=== PATIENT | female | born 1960 | race Hispanic/Latino ===

== ENCOUNTER 2021-09-06 17:37 | Inpatient (IN) | payer OTHER ==
[~2021-09-06] VITALS: Ht 152.4 cm; Wt 159.0 kg
[2021-09-06] MEDS ORDERED: ACETAMINOPHEN 325 MG TAB PO ONE (17:45)
[2021-09-06] MEDS ORDERED: SODIUM CHLORIDE 0.9% 1000ML 1,000 ML IV ONE ×3 (17:45→18:45)
[2021-09-06] MEDS: CEFTRIAXONE 1 GM in SODIUM CHLORIDE 0.9% 50ML 50 ML IV SCH (18:23)
[2021-09-06 18:29] LABS: BASOPHILS # (AUTO) 0.1 (0.0-0.1); BASOPHILS % 0.3 % (0.0-1.0); EOSINOPHILS # (AUTO) 0.1 (0.0-0.4); EOSINOPHILS % 0.3 % (0.0-6.0); HEMATOCRIT 29.8 % (34.2-44.1); HEMOGLOBIN 9.5 g/dL (12.0-16.0); LYMPHOCYTES # (AUTO) 1.2 (1.0-3.2); LYMPHOCYTES % 7.8 % (18.0-39.1); MEAN CORPUSCULAR HEMOGLOBIN 30.4 pg (28-32); MEAN CORPUSCULAR HGB CONC 31.9 g/dL (31-35); MEAN CORPUSCULAR VOLUME 95.5 fL (81-99); MONOCYTES # (AUTO) 1.2 (0.2-0.8); MONOCYTES % 7.3 % (4.4-11.3); NEUTROPHILS # (AUTO) 13.3 (2.1-6.9); NEUTROPHILS % 83.1 % (38.7-80.0); PLATELET COUNT 129 x10e3/uL (140-360); RED BLOOD COUNT 3.12 x10e6/uL (3.6-5.1); RED CELL DISTRIBUTION WIDTH 20.7 % (11.7-14.4)
[2021-09-06 18:37] LABS: CLARITY,URINE SL CLOUDY (CLEAR); COLOR,URINE AMBER (YELLOW); KETONES,URINE TRACE (NEGATIVE); LEUKOCYTE ESTERASE ,URINE SMALL (NEGATIVE); NITRITE,URINE POSITIVE (NEGATIVE); PROTEIN,URINE DIPSTICK 1+ (NEGATIVE); URINE UROBILINOGEN 4 mg/dL (0.2 - 1)
[2021-09-06 18:43] LABS: ALBUMIN 2.2 g/dL (3.5-5.0); ALBUMIN/GLOBULIN RATIO 0.4 (0.8-2.0); ANION GAP 11.6 mmol/L (8-16); CREATININE, SERUM 0.59 mg/dL (0.57-1.11); POTASSIUM 3.6 mmol/L (3.5-5.1)
[2021-09-06] MEDS: SODIUM CHLORIDE 0.9% 1000ML 1,000 ML IV SCH (18:43)
[2021-09-06 18:44] LABS: BACTERIA,URINE MANY /HPF; RBC,URINE 0-5 /HPF (0-5)
[2021-09-06 18:52] LABS: CREATINE KINASE MB 1.4 ng/mL (0-5.0)
[2021-09-06] MEDS ORDERED: ONDANSETRON HCL INJ 2MG/ML 2ML 2 MG/ML VIAL IV PRN (20:00)
[2021-09-06] MEDS ORDERED: ACETAMINOPHEN/CODEINE 300MG - 30MG TAB PO PRN (21:15)
[2021-09-06] MEDS ORDERED: ENOXAPARIN SOD INJ 40 MG/0.4 ML SYR SC STA (21:17)
[2021-09-06 22:00] VITALS: BP 127/75
[2021-09-07] VITALS (12 sets, daily range): BP systolic 112–147; BP diastolic 67–83
[2021-09-07] MEDS: SODIUM CHLORIDE 0.9% 1000ML 1,000 ML IV SCH (04:57)
[2021-09-07 06:07] LABS: BASOPHILS # (AUTO) 0.1 (0.0-0.1); BASOPHILS % 0.5 % (0.0-1.0); EOSINOPHILS # (AUTO) 0.1 (0.0-0.4); EOSINOPHILS % 0.5 % (0.0-6.0); HEMATOCRIT 29.1 % (34.2-44.1); HEMOGLOBIN 9.4 g/dL (12.0-16.0); LYMPHOCYTES # (AUTO) 1.8 (1.0-3.2); LYMPHOCYTES % 11.7 % (18.0-39.1); MEAN CORPUSCULAR HGB CONC 32.3 g/dL (31-35); MONOCYTES # (AUTO) 1.2 (0.2-0.8); MONOCYTES % 7.7 % (4.4-11.3); NEUTROPHILS # (AUTO) 11.8 (2.1-6.9); NEUTROPHILS % 78.8 % (38.7-80.0); PLATELET COUNT 110 x10e3/uL (140-360); RED BLOOD COUNT 3.03 x10e6/uL (3.6-5.1); RED CELL DISTRIBUTION WIDTH 20.5 % (11.7-14.4)
[2021-09-07 06:30] LABS: ALBUMIN 2.1 g/dL (3.5-5.0); ALBUMIN/GLOBULIN RATIO 0.4 (0.8-2.0); ANION GAP 9.5 mmol/L (8-16); CREATININE, SERUM 0.55 mg/dL (0.57-1.11); POTASSIUM 3.5 mmol/L (3.5-5.1)
[2021-09-07] MEDS: FAMOTIDINE 20 MG TAB PO SCH ×2 (09:27→18:23)
[2021-09-07] MEDS: CEFTRIAXONE 1 GM in SODIUM CHLORIDE 0.9% 50ML 50 ML IV SCH (09:27)
[2021-09-07 14:49] LABS: CREATINE KINASE MB 1.8 ng/mL (0-5.0)
[2021-09-07] MEDS: ZINC SULFATE 220 MG CAP PO SCH (18:23)
[2021-09-07] MEDS: ASCORBIC ACID 500 MG TAB PO SCH (18:23)
[2021-09-07] MEDS: ENOXAPARIN SOD INJ 40 MG/0.4 ML SYR SC SCH (18:23)
[2021-09-07] MEDS: OYST-CAL-D 500MG TABLET PO SCH (18:26)
[2021-09-07] MEDS: MAGNESIUM OXIDE 400 MG TAB PO SCH (18:26)
[2021-09-07] MEDS: MELATONIN 3 MG TAB PO PRN (21:24)
[2021-09-08] VITALS (7 sets, daily range): BP systolic 97–137; BP diastolic 60–82
[2021-09-08] MEDS ORDERED: SERTRALINE HCL100 MG PO (04:57)
[2021-09-08] MEDS ORDERED: ALBUTEROL0.63 MG/3 NEB (04:57)
[2021-09-08 05:03] LABS: BASOPHILS # (AUTO) 0.1 (0.0-0.1); BASOPHILS % 0.5 % (0.0-1.0); EOSINOPHILS # (AUTO) 0.3 (0.0-0.4); EOSINOPHILS % 2.4 % (0.0-6.0); HEMATOCRIT 27.6 % (34.2-44.1); HEMOGLOBIN 8.6 g/dL (12.0-16.0); LYMPHOCYTES # (AUTO) 2.2 (1.0-3.2); LYMPHOCYTES % 20.7 % (18.0-39.1); MEAN CORPUSCULAR HEMOGLOBIN 29.8 pg (28-32); MEAN CORPUSCULAR HGB CONC 31.2 g/dL (31-35); MEAN CORPUSCULAR VOLUME 95.5 fL (81-99); MONOCYTES % 9.5 % (4.4-11.3); NEUTROPHILS # (AUTO) 6.8 (2.1-6.9); NEUTROPHILS % 65.6 % (38.7-80.0); PLATELET COUNT 110 x10e3/uL (140-360); RED BLOOD COUNT 2.89 x10e6/uL (3.6-5.1); RED CELL DISTRIBUTION WIDTH 20.5 % (11.7-14.4)
[2021-09-08 05:29] LABS: ALBUMIN/GLOBULIN RATIO 0.4 (0.8-2.0); ANION GAP 7.8 mmol/L (8-16); CREATININE, SERUM 0.56 mg/dL (0.57-1.11); MAGNESIUM 1.6 MG/DL (1.3-2.1); POTASSIUM 3.8 mmol/L (3.5-5.1)
[2021-09-08] MEDS: OYST-CAL-D 500MG TABLET PO SCH ×2 (09:00→16:44)
[2021-09-08] MEDS: MAGNESIUM OXIDE 400 MG TAB PO SCH ×2 (09:00→16:44)
[2021-09-08] MEDS: CEFTRIAXONE 1 GM in SODIUM CHLORIDE 0.9% 50ML 50 ML IV SCH (09:00)
[2021-09-08] MEDS: ASCORBIC ACID 500 MG TAB PO SCH ×2 (09:00→16:45)
[2021-09-08] MEDS: ZINC SULFATE 220 MG CAP PO SCH ×2 (09:00→16:45)
[2021-09-08] MEDS: MULTIVITAMINS/MINERALS TAB PO SCH (09:00)
[2021-09-08] MEDS ORDERED: SODIUM CHLORIDE 0.9% 250ML 250 ML ONE (09:45)
[2021-09-08] MEDS: FAMOTIDINE 20 MG TAB PO SCH ×2 (10:21→16:44)
[2021-09-08] MEDS ORDERED: ONDANSETRON HCL 4 MG ORAL DISINTEGRATING TAB PO PRN (11:45)
[2021-09-08] MEDS: ENOXAPARIN SOD INJ 40 MG/0.4 ML SYR SC SCH (16:46)
[2021-09-09] VITALS (8 sets, daily range): BP systolic 122–131; BP diastolic 54–78
[2021-09-09 05:05] LABS: BASOPHILS % 0.4 % (0.0-1.0); EOSINOPHILS # (AUTO) 0.3 (0.0-0.4); EOSINOPHILS % 3.2 % (0.0-6.0); HEMATOCRIT 28.7 % (34.2-44.1); HEMOGLOBIN 8.9 g/dL (12.0-16.0); LYMPHOCYTES # (AUTO) 2.4 (1.0-3.2); LYMPHOCYTES % 25.5 % (18.0-39.1); MEAN CORPUSCULAR HEMOGLOBIN 30.3 pg (28-32); MEAN CORPUSCULAR VOLUME 97.6 fL (81-99); NEUTROPHILS # (AUTO) 5.4 (2.1-6.9); NEUTROPHILS % 57.6 % (38.7-80.0); PLATELET COUNT 116 x10e3/uL (140-360); RED BLOOD COUNT 2.94 x10e6/uL (3.6-5.1); RED CELL DISTRIBUTION WIDTH 20.5 % (11.7-14.4)
[2021-09-09 05:16] LABS: INR 1.54; PROTHROMBIN TIME 19.8 seconds (11.9-14.5)
[2021-09-09 05:17] LABS: PARTIAL THROMBOPLASTIN TIME 55.7 seconds (23.8-35.5)
[2021-09-09 05:28] LABS: ALBUMIN 2.1 g/dL (3.5-5.0); ALBUMIN/GLOBULIN RATIO 0.4 (0.8-2.0); ANION GAP 9.9 mmol/L (8-16); CALCIUM 8.5 mg/dL (8.4-10.2); CREATININE, SERUM 0.59 mg/dL (0.57-1.11); POTASSIUM 3.9 mmol/L (3.5-5.1)
[2021-09-09] MEDS: MAGNESIUM OXIDE 400 MG TAB PO SCH ×2 (08:48→16:57)
[2021-09-09] MEDS: CEFTRIAXONE 1 GM in SODIUM CHLORIDE 0.9% 50ML 50 ML IV SCH (08:48)
[2021-09-09] MEDS: FAMOTIDINE 20 MG TAB PO SCH ×2 (08:48→16:57)
[2021-09-09] MEDS: ZINC SULFATE 220 MG CAP PO SCH ×2 (08:48→16:57)
[2021-09-09] MEDS: OYST-CAL-D 500MG TABLET PO SCH ×2 (08:48→16:57)
[2021-09-09] MEDS: MULTIVITAMINS/MINERALS TAB PO SCH (08:48)
[2021-09-09] MEDS: ASCORBIC ACID 500 MG TAB PO SCH ×2 (08:48→16:57)
[2021-09-09] MEDS: ENOXAPARIN SOD INJ 40 MG/0.4 ML SYR SC SCH (16:58)
[2021-09-09] MEDS: MELATONIN 3 MG TAB PO PRN (21:15)
[2021-09-10] VITALS (9 sets, daily range): BP systolic 101–142; BP diastolic 58–82
[2021-09-10] MEDS: ACETAMINOPHEN 325 MG TAB PO PRN ×2 (01:42→20:52)
[2021-09-10 06:20] LABS: BASOPHILS % 0.4 % (0.0-1.0); EOSINOPHILS # (AUTO) 0.4 (0.0-0.4); EOSINOPHILS % 3.8 % (0.0-6.0); HEMATOCRIT 29.8 % (34.2-44.1); HEMOGLOBIN 9.5 g/dL (12.0-16.0); LYMPHOCYTES # (AUTO) 3.1 (1.0-3.2); MEAN CORPUSCULAR HEMOGLOBIN 30.8 pg (28-32); MEAN CORPUSCULAR HGB CONC 31.9 g/dL (31-35); MEAN CORPUSCULAR VOLUME 96.8 fL (81-99); MONOCYTES # (AUTO) 1.2 (0.2-0.8); MONOCYTES % 12.2 % (4.4-11.3); NEUTROPHILS % 49.5 % (38.7-80.0); PLATELET COUNT 134 x10e3/uL (140-360); RED BLOOD COUNT 3.08 x10e6/uL (3.6-5.1); RED CELL DISTRIBUTION WIDTH 20.2 % (11.7-14.4)
[2021-09-10 06:51] LABS: ALBUMIN 2.2 g/dL (3.5-5.0); ALBUMIN/GLOBULIN RATIO 0.4 (0.8-2.0); ANION GAP 10.1 mmol/L (8-16); CALCIUM 8.5 mg/dL (8.4-10.2); CREATININE, SERUM 0.54 mg/dL (0.57-1.11); MAGNESIUM 1.7 MG/DL (1.3-2.1); PHOSPHORUS 2.6 MG/DL (2.3-4.7); POTASSIUM 4.1 mmol/L (3.5-5.1)
[2021-09-10] MEDS: ASCORBIC ACID 500 MG TAB PO SCH ×2 (08:49→16:40)
[2021-09-10] MEDS: FAMOTIDINE 20 MG TAB PO SCH ×2 (08:49→16:40)
[2021-09-10] MEDS: CEFTRIAXONE 1 GM in SODIUM CHLORIDE 0.9% 50ML 50 ML IV SCH (08:49)
[2021-09-10] MEDS: OYST-CAL-D 500MG TABLET PO SCH ×2 (08:49→16:40)
[2021-09-10] MEDS: MAGNESIUM OXIDE 400 MG TAB PO SCH ×2 (08:49→16:40)
[2021-09-10] MEDS: MULTIVITAMINS/MINERALS TAB PO SCH (08:49)
[2021-09-10] MEDS: ZINC SULFATE 220 MG CAP PO SCH ×2 (08:49→16:40)
[2021-09-10] MEDS: ENOXAPARIN SOD INJ 40 MG/0.4 ML SYR SC SCH (16:40)
[2021-09-11] VITALS (8 sets, daily range): BP systolic 114–130; BP diastolic 59–80
[2021-09-11] MEDS: ACETAMINOPHEN 325 MG TAB PO PRN (04:48)
[2021-09-11 06:13] LABS: BASOPHILS # (AUTO) 0.1 (0.0-0.1); BASOPHILS % 0.6 % (0.0-1.0); EOSINOPHILS # (AUTO) 0.4 (0.0-0.4); HEMATOCRIT 29.5 % (34.2-44.1); HEMOGLOBIN 9.2 g/dL (12.0-16.0); LYMPHOCYTES # (AUTO) 2.6 (1.0-3.2); LYMPHOCYTES % 28.2 % (18.0-39.1); MEAN CORPUSCULAR HEMOGLOBIN 30.3 pg (28-32); MEAN CORPUSCULAR HGB CONC 31.2 g/dL (31-35); MONOCYTES # (AUTO) 1.2 (0.2-0.8); MONOCYTES % 13.1 % (4.4-11.3); NEUTROPHILS # (AUTO) 4.7 (2.1-6.9); NEUTROPHILS % 50.9 % (38.7-80.0); PLATELET COUNT 129 x10e3/uL (140-360); RED BLOOD COUNT 3.04 x10e6/uL (3.6-5.1); RED CELL DISTRIBUTION WIDTH 20.2 % (11.7-14.4)
[2021-09-11 06:37] LABS: ALBUMIN 2.1 g/dL (3.5-5.0); ALBUMIN/GLOBULIN RATIO 0.4 (0.8-2.0); ANION GAP 13.1 mmol/L (8-16); CALCIUM 8.5 mg/dL (8.4-10.2); CREATININE, SERUM 0.51 mg/dL (0.57-1.11); MAGNESIUM 1.8 MG/DL (1.3-2.1); PHOSPHORUS 2.5 MG/DL (2.3-4.7); POTASSIUM 4.1 mmol/L (3.5-5.1)
[2021-09-11] MEDS: FAMOTIDINE 20 MG TAB PO SCH ×2 (07:38→16:30)
[2021-09-11] MEDS: MULTIVITAMINS/MINERALS TAB PO SCH (09:00)
[2021-09-11] MEDS: CEFTRIAXONE 1 GM in SODIUM CHLORIDE 0.9% 50ML 50 ML IV SCH (09:00)
[2021-09-11] MEDS: ASCORBIC ACID 500 MG TAB PO SCH ×2 (09:00→17:00)
[2021-09-11] MEDS: MAGNESIUM OXIDE 400 MG TAB PO SCH ×2 (09:00→17:00)
[2021-09-11] MEDS: OYST-CAL-D 500MG TABLET PO SCH ×2 (09:00→17:00)
[2021-09-11] MEDS ORDERED: BISACODYL 10 MG SUPP PR PRN (10:45)
[2021-09-11] MEDS: ZINC SULFATE 220 MG CAP PO SCH ×2 (12:17→17:00)
[2021-09-11] MEDS: DOCUSATE SODIUM 100 MG CAP PO SCH (17:00)
[2021-09-11] MEDS: ENOXAPARIN SOD INJ 40 MG/0.4 ML SYR SC SCH (17:00)
[2021-09-12 00:30] VITALS: BP 121/68
[2021-09-12] MEDS: ACETAMINOPHEN 325 MG TAB PO PRN (00:52)
[2021-09-12 04:05] VITALS: BP 121/76
[2021-09-12 05:32] LABS: BASOPHILS # (AUTO) 0.1 (0.0-0.1); BASOPHILS % 0.5 % (0.0-1.0); EOSINOPHILS # (AUTO) 0.4 (0.0-0.4); EOSINOPHILS % 4.1 % (0.0-6.0); HEMATOCRIT 28.4 % (34.2-44.1); HEMOGLOBIN 8.9 g/dL (12.0-16.0); LYMPHOCYTES # (AUTO) 2.5 (1.0-3.2); LYMPHOCYTES % 26.4 % (18.0-39.1); MEAN CORPUSCULAR HEMOGLOBIN 30.1 pg (28-32); MEAN CORPUSCULAR HGB CONC 31.3 g/dL (31-35); MEAN CORPUSCULAR VOLUME 95.9 fL (81-99); MONOCYTES # (AUTO) 1.3 (0.2-0.8); MONOCYTES % 13.5 % (4.4-11.3); NEUTROPHILS # (AUTO) 4.8 (2.1-6.9); NEUTROPHILS % 52.1 % (38.7-80.0); PLATELET COUNT 141 x10e3/uL (140-360); RED BLOOD COUNT 2.96 x10e6/uL (3.6-5.1); RED CELL DISTRIBUTION WIDTH 20.2 % (11.7-14.4)
[2021-09-12 06:37] LABS: ALBUMIN/GLOBULIN RATIO 0.4 (0.8-2.0); CALCIUM 8.6 mg/dL (8.4-10.2); CREATININE, SERUM 0.49 mg/dL (0.57-1.11); MAGNESIUM 1.8 MG/DL (1.3-2.1); PHOSPHORUS 2.3 MG/DL (2.3-4.7)
[2021-09-12] MEDS: FAMOTIDINE 20 MG TAB PO SCH ×2 (07:30→16:37)
[2021-09-12 08:00] VITALS: BP 121/76
[2021-09-12] MEDS: ASCORBIC ACID 500 MG TAB PO SCH (09:00)
[2021-09-12] MEDS: ZINC SULFATE 220 MG CAP PO SCH (09:00)
[2021-09-12] MEDS: OYST-CAL-D 500MG TABLET PO SCH (09:00)
[2021-09-12] MEDS: MAGNESIUM OXIDE 400 MG TAB PO SCH (09:00)
[2021-09-12] MEDS: MULTIVITAMINS/MINERALS TAB PO SCH (09:00)
[2021-09-12] MEDS ORDERED: POLYETHYLENE GLYCOL 3350 17 GM PACK PO SCH (09:00)
[2021-09-12] MEDS: DOCUSATE SODIUM 100 MG CAP PO SCH (09:00)
[2021-09-12] MEDS: CEFTRIAXONE 1 GM in SODIUM CHLORIDE 0.9% 50ML 50 ML IV SCH (09:00)
[2021-09-12] MEDS ORDERED: Multivitamins/Minerals PO (14:28)
[2021-09-12] MEDS ORDERED: Acetaminophen/Codeine 300-30MG PO (14:28)
[2021-09-12] MEDS ORDERED: COLACE100 MG PO (14:28)
[2021-09-12] MEDS ORDERED: MAG-OXIDE400 MG PO (14:28)
[2021-09-12] MEDS ORDERED: Calcium Carbonate PO (14:28)
[2021-09-12] MEDS ORDERED: ACETAMINOPHEN325 M1 PO (14:28)
[2021-09-12] MEDS ORDERED: MELATONIN3 MG PO (14:28)
[2021-09-12] MEDS ORDERED: MIRALAX17 GM PO (14:28)
[2021-09-12] MEDS ORDERED: CIPRO500 MG PO (14:28)
[2021-09-12] MEDS ORDERED: ZINC SULFATE50 MG PO (14:28)
[2021-09-12] MEDS ORDERED: ASCORBIC ACID500 MG PO (14:28)
[2021-09-12] MEDS ORDERED: ONDANSETRON ODT4 MG PO (14:38)
[2021-09-12 15:24] VITALS: BP 115/65
== END 2021-09-12 17:09 | disposition home or self-care (01) | DRG 871 ==
LOC: ER 17:42 → ERHOLD 19:48 → IMCU 21:10 → MED/SURG2 09-07 21:26
PROVIDERS: ADMIT Internal Medicine; ATTEND Internal Medicine
DX: A41.51 Sepsis due to Escherichia coli [E. coli] (principal); R53.2 Functional quadriplegia; N39.0 Urinary tract infection, site not specified; Z68.44 Body mass index [BMI] 60.0-69.9, adult; R65.20 Severe sepsis without septic shock; R09.02 Hypoxemia; E66.01 Morbid (severe) obesity due to excess calories; R74.01 Elevation of levels of liver transaminase levels; K74.60 Unspecified cirrhosis of liver; E65 Localized adiposity; R13.10 Dysphagia, unspecified; D69.6 Thrombocytopenia, unspecified; D63.8 Anemia in other chronic diseases classified elsewhere; G47.33 Obstructive sleep apnea (adult) (pediatric); R16.1 Splenomegaly, not elsewhere classified; F32.A Depression, unspecified; Z20.822 Contact with and (suspected) exposure to COVID-19; K59.00 Constipation, unspecified; Z91.81 History of falling; S30.811A Abrasion of abdominal wall, initial encounter; W19.XXXA Unspecified fall, initial encounter
CPT/HCPCS: 36415; 71045; 76700; 80053; 81001; 82270; 82550; 82553; 83540; 83605; 83735; 84100; 84466; 84484; 85025; 85610; 85730; 87040; 87071; 87086; 87186; 87205; 93005; 94799; 97139; 99251; 99284; J0696; J1650; J7030; J7050; U0002

== ENCOUNTER 2021-10-02 09:03 | Inpatient (IN) | payer OTHER ==
[~2021-10-02] VITALS: Ht 157.5 cm; Wt 161.0 kg
[2021-10-02] VITALS (15 sets, daily range): BP systolic 115–139; BP diastolic 61–104
[~2021-10-02 09:03] MED LIST: ACETAMINOPHEN325 M1 PO; ALBUTEROL0.63 MG/3 NEB; ASCORBIC ACID500 MG PO; Acetaminophen/Codeine 300-30MG PO; CIPRO500 MG PO; COLACE100 MG PO; Calcium Carbonate PO; MAG-OXIDE400 MG PO; MELATONIN3 MG PO; MIRALAX17 GM PO; Multivitamins/Minerals PO; ONDANSETRON ODT4 MG PO; SERTRALINE HCL100 MG PO; ZINC SULFATE50 MG PO
[2021-10-02] MEDS ORDERED: Vancomycin IV 1 GM in SODIUM CHLORIDE 0.9% 250ML 250 ML IV STA (09:13)
[2021-10-02] MEDS ORDERED: SODIUM CHLORIDE 0.9% 1000ML 1,000 ML IV STA (09:13)
[2021-10-02 09:33] LABS: BASOPHILS # (AUTO) 0.1 (0.0-0.1); BASOPHILS % 0.5 % (0.0-1.0); EOSINOPHILS # (AUTO) 0.4 (0.0-0.4); EOSINOPHILS % 2.4 % (0.0-6.0); HEMATOCRIT 30.4 % (34.2-44.1); HEMOGLOBIN 9.4 g/dL (12.0-16.0); LYMPHOCYTES # (AUTO) 3.2 (1.0-3.2); LYMPHOCYTES % 17.2 % (18.0-39.1); MEAN CORPUSCULAR HEMOGLOBIN 29.8 pg (28-32); MEAN CORPUSCULAR HGB CONC 30.9 g/dL (31-35); MEAN CORPUSCULAR VOLUME 96.5 fL (81-99); MONOCYTES # (AUTO) 2.3 (0.2-0.8); MONOCYTES % 12.2 % (4.4-11.3); NEUTROPHILS # (AUTO) 12.2 (2.1-6.9); NEUTROPHILS % 65.8 % (38.7-80.0); PLATELET COUNT 192 x10e3/uL (140-360); RED BLOOD COUNT 3.15 x10e6/uL (3.6-5.1); RED CELL DISTRIBUTION WIDTH 21.9 % (11.7-14.4)
[2021-10-02 09:35] LABS: CLARITY,URINE CLOUDY (CLEAR); COLOR,URINE AMBER (YELLOW); KETONES,URINE NEGATIVE (NEGATIVE); LEUKOCYTE ESTERASE ,URINE NEGATIVE (NEGATIVE); NITRITE,URINE NEGATIVE (NEGATIVE); PROTEIN,URINE DIPSTICK >=300 (NEGATIVE)
[2021-10-02 09:36] LABS: ABG HCO3 29 mmol/L (22-26); ABG PCO2 56 mmHg (35-45); ABG PH 7.33 (7.35-7.45); ABG PO2 89 mmHg (80-105); ABG TCO2 31
[2021-10-02 09:40] LABS: INR 1.87
[2021-10-02 09:41] LABS: PARTIAL THROMBOPLASTIN TIME 55.8 seconds (23.8-35.5)
[2021-10-02 09:44] LABS: AMORPHOUS SEDIMENT,URINE FEW (FEW); BACTERIA,URINE FEW /HPF
[2021-10-02 09:50] LABS: ALBUMIN 2.1 g/dL (3.5-5.0); ALBUMIN/GLOBULIN RATIO 0.3 (0.8-2.0); ANION GAP 12.1 mmol/L (8-16); CALCIUM 8.1 mg/dL (8.4-10.2); CREATININE, SERUM 0.64 mg/dL (0.57-1.11); POTASSIUM 4.1 mmol/L (3.5-5.1)
[2021-10-02 09:57] LABS: CREATINE KINASE MB 1.6 ng/mL (0-5.0)
[2021-10-02] MEDS ORDERED: SODIUM CHLORIDE 0.9% 1000ML 1,000 ML IV ONE (10:00)
[2021-10-02] MEDS ORDERED: METHYLPREDNISOLONE SOD SUCC 125 MG/2ML VIAL IV ONE (10:00)
[2021-10-02 10:02] LABS: B-TYPE NATRIURETIC PEPTIDE2 432.5 pg/mL (0-100)
[2021-10-02] MEDS ORDERED: SODIUM CHLORIDE 0.9% 1000ML 1,000 ML IV SCH (10:15)
[2021-10-02] MEDS ORDERED: ALBUTEROL SULF 0.083% NEB SOLN 3 ML NEB NEB PRN (12:45)
[2021-10-02] MEDS ORDERED: FUROSEMIDE INJ 10 MG/ML 4 ML VIAL IV ONE (14:30)
[2021-10-02 15:21] LABS: ABG PCO2 56 mmHg (35-45); ABG PH 7.35 (7.35-7.45); ABG PO2 104 mmHg (80-105)
[2021-10-02 15:22] LABS: ABG HCO3 31 mmol/L (22-26); ABG TCO2 33
[2021-10-02] MEDS: ASCORBIC ACID 500 MG TAB PO SCH (17:00)
[2021-10-02] MEDS: DOCUSATE SODIUM 100 MG CAP PO SCH (17:00)
[2021-10-02] MEDS: FUROSEMIDE INJ 10 MG/ML 4 ML VIAL IV SCH (20:23)
[2021-10-02 22:13] LABS: % IRON SATURATION 17 % (15-50); IRON 38 ug/dL (50-170); TOTAL IRON BINDING CAPACITY 228 ug/dL (261-478); TRANSFERRIN 163 mg/dL (180-382)
[2021-10-02] MEDS ORDERED: PHYTONADIONE 10MG/ML 20 MG in SODIUM CHLORIDE 0.9% 100 ML IV ONE (22:30)
[2021-10-02] MEDS ORDERED: PHYTONADIONE 10MG/ML 20 MG in SODIUM CHLORIDE 0.9% 100 ML SC ONE (22:30)
[2021-10-02] MEDS ORDERED: PHYTONADIONE 10 MG/ML AMP IV ONE (23:00)
[2021-10-03] VITALS (22 sets, daily range): BP systolic 91–129; BP diastolic 53–81
[2021-10-03 05:37] LABS: BASOPHILS % 0.2 % (0.0-1.0); HEMATOCRIT 26.7 % (34.2-44.1); HEMOGLOBIN 8.5 g/dL (12.0-16.0); LYMPHOCYTES # (AUTO) 1.1 (1.0-3.2); LYMPHOCYTES % 9.6 % (18.0-39.1); MEAN CORPUSCULAR HEMOGLOBIN 30.2 pg (28-32); MEAN CORPUSCULAR HGB CONC 31.8 g/dL (31-35); MONOCYTES # (AUTO) 0.7 (0.2-0.8); MONOCYTES % 6.6 % (4.4-11.3); NEUTROPHILS # (AUTO) 9.2 (2.1-6.9); NEUTROPHILS % 82.8 % (38.7-80.0); PLATELET COUNT 124 x10e3/uL (140-360); RED BLOOD COUNT 2.81 x10e6/uL (3.6-5.1); RED CELL DISTRIBUTION WIDTH 21.2 % (11.7-14.4)
[2021-10-03 06:05] LABS: ALBUMIN 1.9 g/dL (3.5-5.0); ALBUMIN/GLOBULIN RATIO 0.3 (0.8-2.0); ANION GAP 10.1 mmol/L (8-16); CALCIUM 7.9 mg/dL (8.4-10.2); CHOL/HDL RATIO 12.7 (3.0-3.6); CREATININE, SERUM 0.66 mg/dL (0.57-1.11); MAGNESIUM 1.6 MG/DL (1.3-2.1); PHOSPHORUS 4.2 MG/DL (2.3-4.7); POTASSIUM 4.1 mmol/L (3.5-5.1)
[2021-10-03 06:24] LABS: BILIRUBIN,DIRECT 2.6 mg/dL (0.0-0.5)
[2021-10-03 06:31] LABS: FREE THYROXINE INDEX 1.2302 (1.4-3.8); THYROID STIMULATING HORMONE 0.723 uIU/mL (0.350-4.940)
[2021-10-03] MEDS: FUROSEMIDE INJ 10 MG/ML 4 ML VIAL IV SCH ×2 (08:32→21:31)
[2021-10-03] MEDS: DOCUSATE SODIUM 100 MG CAP PO SCH ×2 (08:32→16:59)
[2021-10-03] MEDS: FOLIC ACID 1 MG TAB PO SCH (08:33)
[2021-10-03] MEDS: POLYETHYLENE GLYCOL 3350 17 GM PACK PO SCH (08:33)
[2021-10-03] MEDS: ASCORBIC ACID 500 MG TAB PO SCH ×2 (08:33→16:59)
[2021-10-03] MEDS: IRON SUCROSE 100 MG in SODIUM CHLORIDE 0.9% 100 ML 100 ML IV SCH (08:35)
[2021-10-03] MEDS: ACETAMINOPHEN 325 MG TAB PO PRN (19:35)
[2021-10-04] VITALS (14 sets, daily range): BP systolic 93–128; BP diastolic 45–81
[2021-10-04 05:03] LABS: BASOPHILS % 0.2 % (0.0-1.0); EOSINOPHILS # (AUTO) 0.1 (0.0-0.4); EOSINOPHILS % 0.6 % (0.0-6.0); HEMATOCRIT 29.1 % (34.2-44.1); HEMOGLOBIN 9.2 g/dL (12.0-16.0); LYMPHOCYTES # (AUTO) 1.4 (1.0-3.2); LYMPHOCYTES % 11.1 % (18.0-39.1); MEAN CORPUSCULAR HEMOGLOBIN 29.9 pg (28-32); MEAN CORPUSCULAR HGB CONC 31.6 g/dL (31-35); MEAN CORPUSCULAR VOLUME 94.5 fL (81-99); MONOCYTES # (AUTO) 1.2 (0.2-0.8); NEUTROPHILS % 77.9 % (38.7-80.0); PLATELET COUNT 141 x10e3/uL (140-360); RED BLOOD COUNT 3.08 x10e6/uL (3.6-5.1); RED CELL DISTRIBUTION WIDTH 21.4 % (11.7-14.4)
[2021-10-04 05:35] LABS: ALBUMIN 1.9 g/dL (3.5-5.0); ALBUMIN/GLOBULIN RATIO 0.3 (0.8-2.0); ANION GAP 11.3 mmol/L (8-16); CALCIUM 7.6 mg/dL (8.4-10.2); CREATININE, SERUM 0.69 mg/dL (0.57-1.11); POTASSIUM 3.3 mmol/L (3.5-5.1)
[2021-10-04] MEDS: LORAZEPAM 0.5 MG TAB PO PRN ×2 (08:09→16:46)
[2021-10-04] MEDS: FUROSEMIDE INJ 10 MG/ML 4 ML VIAL IV SCH ×2 (08:09→21:13)
[2021-10-04] MEDS: FAMOTIDINE 20 MG TAB PO SCH (08:10)
[2021-10-04] MEDS: DOCUSATE SODIUM 100 MG CAP PO SCH ×2 (08:10→16:36)
[2021-10-04] MEDS: FOLIC ACID 1 MG TAB PO SCH (08:10)
[2021-10-04] MEDS: POLYETHYLENE GLYCOL 3350 17 GM PACK PO SCH (08:10)
[2021-10-04] MEDS: ASCORBIC ACID 500 MG TAB PO SCH ×2 (08:11→16:36)
[2021-10-04] MEDS: IRON SUCROSE 100 MG in SODIUM CHLORIDE 0.9% 100 ML 100 ML IV SCH (08:46)
[2021-10-04] MEDS ORDERED: POTASSIUM CHLORIDE 20MEQ/100ML 200 ML IV ONE (09:00)
[2021-10-04] MEDS: ENOXAPARIN SOD INJ 40 MG/0.4 ML SYR SC SCH (16:37)
[2021-10-04] MEDS: ACETAMINOPHEN 325 MG TAB PO PRN (16:46)
[2021-10-05] VITALS (26 sets, daily range): BP systolic 102–137; BP diastolic 54–79
[2021-10-05] MEDS: LORAZEPAM 0.5 MG TAB PO PRN (04:01)
[2021-10-05] MEDS: ACETAMINOPHEN 325 MG TAB PO PRN (04:02)
[2021-10-05 04:58] LABS: BASOPHILS % 0.2 % (0.0-1.0); EOSINOPHILS # (AUTO) 0.4 (0.0-0.4); EOSINOPHILS % 3.2 % (0.0-6.0); HEMATOCRIT 27.6 % (34.2-44.1); HEMOGLOBIN 8.7 g/dL (12.0-16.0); LYMPHOCYTES # (AUTO) 1.5 (1.0-3.2); LYMPHOCYTES % 11.7 % (18.0-39.1); MEAN CORPUSCULAR HEMOGLOBIN 30.3 pg (28-32); MEAN CORPUSCULAR HGB CONC 31.5 g/dL (31-35); MEAN CORPUSCULAR VOLUME 96.2 fL (81-99); MONOCYTES # (AUTO) 1.2 (0.2-0.8); MONOCYTES % 9.5 % (4.4-11.3); NEUTROPHILS # (AUTO) 9.3 (2.1-6.9); NEUTROPHILS % 72.5 % (38.7-80.0); PLATELET COUNT 143 x10e3/uL (140-360); RED BLOOD COUNT 2.87 x10e6/uL (3.6-5.1); RED CELL DISTRIBUTION WIDTH 21.8 % (11.7-14.4)
[2021-10-05 05:27] LABS: ALBUMIN 1.8 g/dL (3.5-5.0); ALBUMIN/GLOBULIN RATIO 0.3 (0.8-2.0); CALCIUM 7.6 mg/dL (8.4-10.2); CREATININE, SERUM 0.62 mg/dL (0.57-1.11)
[2021-10-05] MEDS: ASCORBIC ACID 500 MG TAB PO SCH ×2 (09:00→16:59)
[2021-10-05] MEDS: DOCUSATE SODIUM 100 MG CAP PO SCH ×2 (09:00→16:59)
[2021-10-05] MEDS: FAMOTIDINE 20 MG TAB PO SCH (09:00)
[2021-10-05] MEDS: FOLIC ACID 1 MG TAB PO SCH (09:00)
[2021-10-05] MEDS: POLYETHYLENE GLYCOL 3350 17 GM PACK PO SCH (09:00)
[2021-10-05] MEDS: DEXMEDETOMIDINE 400MCG/NS100ML 100 ML IV PRN ×2 (09:45→22:04)
[2021-10-05] MEDS ORDERED: POTASSIUM CHLORIDE 20MEQ/100ML 200 ML IV ONE (10:15)
[2021-10-05 11:12] LABS: ABG HCO3 37 mmol/L (22-26); ABG PCO2 68 mmHg (35-45); ABG PH 7.34 (7.35-7.45); ABG PO2 59 mmHg (80-105); ABG TCO2 39
[2021-10-05] MEDS: FUROSEMIDE INJ 10 MG/ML 4 ML VIAL IV SCH ×2 (11:28→20:38)
[2021-10-05] MEDS: IRON SUCROSE 100 MG in SODIUM CHLORIDE 0.9% 100 ML 100 ML IV SCH (13:09)
[2021-10-05] MEDS: ENOXAPARIN SOD INJ 40 MG/0.4 ML SYR SC SCH (16:51)
[2021-10-06] VITALS (72 sets, daily range): BP systolic 66–144; BP diastolic 12–88
[2021-10-06 05:00] LABS: BASOPHILS % 0.2 % (0.0-1.0); EOSINOPHILS # (AUTO) 0.4 (0.0-0.4); EOSINOPHILS % 2.9 % (0.0-6.0); HEMATOCRIT 29.7 % (34.2-44.1); HEMOGLOBIN 9.3 g/dL (12.0-16.0); LYMPHOCYTES # (AUTO) 1.8 (1.0-3.2); LYMPHOCYTES % 14.7 % (18.0-39.1); MEAN CORPUSCULAR HEMOGLOBIN 30.4 pg (28-32); MEAN CORPUSCULAR HGB CONC 31.3 g/dL (31-35); MEAN CORPUSCULAR VOLUME 97.1 fL (81-99); MONOCYTES # (AUTO) 1.2 (0.2-0.8); MONOCYTES % 9.5 % (4.4-11.3); NEUTROPHILS # (AUTO) 8.6 (2.1-6.9); NEUTROPHILS % 69.7 % (38.7-80.0); PLATELET COUNT 159 x10e3/uL (140-360); RED BLOOD COUNT 3.06 x10e6/uL (3.6-5.1)
[2021-10-06 05:28] LABS: ALBUMIN 1.8 g/dL (3.5-5.0); ALBUMIN/GLOBULIN RATIO 0.3 (0.8-2.0); ANION GAP 12.4 mmol/L (8-16); CALCIUM 7.9 mg/dL (8.4-10.2); CREATININE, SERUM 0.66 mg/dL (0.57-1.11); POTASSIUM 3.4 mmol/L (3.5-5.1)
[2021-10-06] MEDS: FAMOTIDINE 20 MG TAB PO SCH (08:23)
[2021-10-06] MEDS: POLYETHYLENE GLYCOL 3350 17 GM PACK PO SCH (08:23)
[2021-10-06] MEDS: FUROSEMIDE INJ 10 MG/ML 4 ML VIAL IV SCH ×2 (08:23→21:13)
[2021-10-06] MEDS: FOLIC ACID 1 MG TAB PO SCH (08:23)
[2021-10-06] MEDS: ASCORBIC ACID 500 MG TAB PO SCH ×2 (08:23→17:00)
[2021-10-06] MEDS: DOCUSATE SODIUM 100 MG CAP PO SCH ×2 (08:23→17:00)
[2021-10-06] MEDS: IRON SUCROSE 100 MG in SODIUM CHLORIDE 0.9% 100 ML 100 ML IV SCH (08:23)
[2021-10-06] MEDS: DEXMEDETOMIDINE 400MCG/NS100ML 100 ML IV PRN ×3 (09:30→22:03)
[2021-10-06] MEDS ORDERED: NOREPINEPHRINE 8 MG/D5W 250 ML 250 ML IV PRN (13:00)
[2021-10-06] MEDS ORDERED: POTASSIUM CHLORIDE 20MEQ/100ML 100 ML IV ONE (16:30)
[2021-10-06] MEDS ORDERED: CALCIUM GLUC 1 G/50 ML NACL 100 ML IV ONE (16:45)
[2021-10-06] MEDS: ENOXAPARIN SOD INJ 40 MG/0.4 ML SYR SC SCH (17:13)
[2021-10-06] MEDS: VASOPRESSIN 60 UNIT in DEXTROSE 5% 50ML 57 ML IV PRN (18:20)
[2021-10-06] MEDS ORDERED: DEXMEDETOMIDINE 100 ML IV PRN (22:15)
[2021-10-07] VITALS (34 sets, daily range): BP systolic 60–117; BP diastolic 31–81
[2021-10-07] MEDS ORDERED: ALBUMIN 25% 25GM 100ML 0.25 GM/ML BTL IV ONE (01:45)
[2021-10-07] MEDS: NOREPINEPHRINE 8 MG/D5W 250 ML 250 ML IV SCH ×2 (02:06→21:32)
[2021-10-07] MEDS: DEXMEDETOMIDINE 100 ML IV PRN ×2 (02:56→10:27)
[2021-10-07 04:57] LABS: BASOPHILS % 0.2 % (0.0-1.0); EOSINOPHILS # (AUTO) 0.5 (0.0-0.4); EOSINOPHILS % 3.2 % (0.0-6.0); HEMOGLOBIN 9.9 g/dL (12.0-16.0); LYMPHOCYTES # (AUTO) 2.1 (1.0-3.2); LYMPHOCYTES % 12.7 % (18.0-39.1); MONOCYTES # (AUTO) 1.5 (0.2-0.8); NEUTROPHILS # (AUTO) 11.6 (2.1-6.9); NEUTROPHILS % 71.3 % (38.7-80.0); PLATELET COUNT 206 x10e3/uL (140-360); RED CELL DISTRIBUTION WIDTH 22.6 % (11.7-14.4)
[2021-10-07 05:26] LABS: ALBUMIN 2.1 g/dL (3.5-5.0); ALBUMIN/GLOBULIN RATIO 0.3 (0.8-2.0); ANION GAP 14.8 mmol/L (8-16); CALCIUM 8.4 mg/dL (8.4-10.2); CREATININE, SERUM 1.06 mg/dL (0.57-1.11); POTASSIUM 3.8 mmol/L (3.5-5.1)
[2021-10-07 08:03] LABS: ABG HCO3 33 mmol/L (22-26); ABG PCO2 55 mmHg (35-45); ABG PH 7.39 (7.35-7.45); ABG PO2 72 mmHg (80-105); ABG TCO2 35
[2021-10-07] MEDS: FOLIC ACID 1 MG TAB PO SCH (08:29)
[2021-10-07] MEDS: POLYETHYLENE GLYCOL 3350 17 GM PACK PO SCH (08:29)
[2021-10-07] MEDS: DOCUSATE SODIUM 100 MG CAP PO SCH ×2 (08:29→16:26)
[2021-10-07] MEDS: ASCORBIC ACID 500 MG TAB PO SCH ×2 (08:30→16:26)
[2021-10-07] MEDS: FAMOTIDINE 20 MG TAB PO SCH (08:30)
[2021-10-07] MEDS: IRON SUCROSE 100 MG in SODIUM CHLORIDE 0.9% 100 ML 100 ML IV SCH (09:16)
[2021-10-07] MEDS ORDERED: PROPOFOL IV EMULSION 10MG/ML 100 ML ONE (12:56)
[2021-10-07] MEDS ORDERED: MIDAZOLAM HCL 2 MG/2 ML VIAL ONE (13:35)
[2021-10-07] MEDS ORDERED: SUCCINYLCHOLINE CHLORIDE 20 MG/ML 10ML VIAL ONE (13:35)
[2021-10-07] MEDS ORDERED: VECURONIUM BROMIDE FOR INJ 20 MG VIAL ONE (13:35)
[2021-10-07] MEDS ORDERED: ETOMIDATE 2 MG/ML 10 ML INJ IV ONE (13:35)
[2021-10-07] MEDS ORDERED: WATER STERILE 10 ML VIAL ONE (13:35)
[2021-10-07 14:09] LABS: ABG PCO2 67 mmHg (35-45)
[2021-10-07 14:10] LABS: ABG HCO3 33 mmol/L (22-26); ABG PO2 65 mmHg (80-105); ABG TCO2 35
[2021-10-07] MEDS: PROPOFOL IV EMULSION 10MG/ML 100 ML IV SCH ×3 (14:17→21:30)
[2021-10-07] MEDS: FENTANYL 2000MCG/NS 250 250 ML IV SCH (14:18)
[2021-10-07] MEDS: Vancomycin IV 1 GM in SODIUM CHLORIDE 0.9% 250ML 250 ML IV SCH (15:17)
[2021-10-07] MEDS: ENOXAPARIN 30 MG/0.3 ML SYR SC SCH (16:27)
[2021-10-07] MEDS: SODIUM CHLORIDE 0.45% 1,000 ML IV SCH (17:41)
[2021-10-07] MEDS: VASOPRESSIN 60 UNIT in DEXTROSE 5% 50ML 57 ML IV PRN (21:31)
[2021-10-08] VITALS (77 sets, daily range): BP systolic 73–135; BP diastolic 29–76
[2021-10-08] MEDS: Vancomycin IV 1 GM in SODIUM CHLORIDE 0.9% 250ML 250 ML IV SCH (01:57)
[2021-10-08] MEDS: PROPOFOL IV EMULSION 10MG/ML 100 ML IV SCH ×5 (01:59→21:44)
[2021-10-08 05:10] LABS: BASOPHILS # (AUTO) 0.1 (0.0-0.1); BASOPHILS % 0.3 % (0.0-1.0); EOSINOPHILS # (AUTO) 1.6 (0.0-0.4); EOSINOPHILS % 8.9 % (0.0-6.0); HEMATOCRIT 30.1 % (34.2-44.1); HEMOGLOBIN 9.5 g/dL (12.0-16.0); LYMPHOCYTES # (AUTO) 2.9 (1.0-3.2); LYMPHOCYTES % 15.9 % (18.0-39.1); MEAN CORPUSCULAR HEMOGLOBIN 30.9 pg (28-32); MEAN CORPUSCULAR HGB CONC 31.6 g/dL (31-35); MONOCYTES # (AUTO) 1.3 (0.2-0.8); MONOCYTES % 7.2 % (4.4-11.3); NEUTROPHILS # (AUTO) 11.6 (2.1-6.9); NEUTROPHILS % 64.3 % (38.7-80.0); PLATELET COUNT 198 x10e3/uL (140-360); RED BLOOD COUNT 3.07 x10e6/uL (3.6-5.1)
[2021-10-08 05:34] LABS: ALBUMIN 1.8 g/dL (3.5-5.0); ALBUMIN/GLOBULIN RATIO 0.3 (0.8-2.0); ANION GAP 15.5 mmol/L (8-16); CALCIUM 7.8 mg/dL (8.4-10.2); CREATININE, SERUM 1.66 mg/dL (0.57-1.11); POTASSIUM 3.5 mmol/L (3.5-5.1)
[2021-10-08] MEDS: SODIUM CHLORIDE 0.45% 1,000 ML IV SCH (05:50)
[2021-10-08] MEDS: DOCUSATE SODIUM 100 MG CAP PO SCH ×2 (08:23→17:30)
[2021-10-08] MEDS: POLYETHYLENE GLYCOL 3350 17 GM PACK PO SCH (08:23)
[2021-10-08] MEDS: FOLIC ACID 1 MG TAB PO SCH (08:23)
[2021-10-08] MEDS: ASCORBIC ACID 500 MG TAB PO SCH ×2 (08:24→17:30)
[2021-10-08] MEDS: FAMOTIDINE 20 MG TAB PO SCH (08:24)
[2021-10-08 08:25] LABS: ABG HCO3 31 mmol/L (22-26); ABG PCO2 58 mmHg (35-45); ABG PH 7.33 (7.35-7.45); ABG PO2 56 mmHg (80-105); ABG TCO2 33
[2021-10-08] MEDS: IRON SUCROSE 100 MG in SODIUM CHLORIDE 0.9% 100 ML 100 ML IV SCH (09:14)
[2021-10-08] MEDS: VASOPRESSIN 60 UNIT in DEXTROSE 5% 50ML 57 ML IV PRN ×2 (09:18→22:16)
[2021-10-08] MEDS: FUROSEMIDE INJ 100 MG in SODIUM CHLORIDE 0.9% 90 ML IV SCH (12:08)
[2021-10-08] MEDS ORDERED: MIDODRINE 2.5 MG TAB PO SCH (14:00)
[2021-10-08] MEDS: MIDODRINE HCL 5 MG TABLET PO SCH ×2 (14:15→23:00)
[2021-10-08] MEDS: NOREPINEPHRINE 8 MG/D5W 250 ML 250 ML IV SCH ×2 (16:59→23:33)
[2021-10-08] MEDS: ENOXAPARIN 30 MG/0.3 ML SYR SC SCH (17:30)
[2021-10-08] MEDS: ALBUMIN 25% 25GM 100ML 0.25 GM/ML BTL IV SCH (17:30)
[2021-10-09] VITALS (69 sets, daily range): BP systolic 93–151; BP diastolic 42–116
[2021-10-09] MEDS: FENTANYL 2000MCG/NS 250 250 ML IV SCH ×2 (01:35→21:55)
[2021-10-09] MEDS: Vancomycin IV 1 GM in SODIUM CHLORIDE 0.9% 250ML 250 ML IV SCH (01:36)
[2021-10-09] MEDS: PROPOFOL IV EMULSION 10MG/ML 100 ML IV SCH ×5 (01:36→20:48)
[2021-10-09] MEDS: MIDODRINE HCL 5 MG TABLET PO SCH ×3 (06:16→22:23)
[2021-10-09] MEDS: FUROSEMIDE INJ 100 MG in SODIUM CHLORIDE 0.9% 90 ML IV SCH ×3 (06:16→20:47)
[2021-10-09 06:57] LABS: BASOPHILS # (AUTO) 0.1 (0.0-0.1); BASOPHILS % 0.4 % (0.0-1.0); EOSINOPHILS # (AUTO) 1.9 (0.0-0.4); EOSINOPHILS % 8.3 % (0.0-6.0); HEMOGLOBIN 9.2 g/dL (12.0-16.0); LYMPHOCYTES # (AUTO) 2.7 (1.0-3.2); LYMPHOCYTES % 11.7 % (18.0-39.1); MEAN CORPUSCULAR HGB CONC 30.7 g/dL (31-35); MONOCYTES # (AUTO) 0.7 (0.2-0.8); MONOCYTES % 2.9 % (4.4-11.3); NEUTROPHILS # (AUTO) 17.1 (2.1-6.9); NEUTROPHILS % 73.6 % (38.7-80.0); PLATELET COUNT 156 x10e3/uL (140-360); RED BLOOD COUNT 2.97 x10e6/uL (3.6-5.1); RED CELL DISTRIBUTION WIDTH 23.8 % (11.7-14.4)
[2021-10-09 07:22] LABS: ALBUMIN 1.8 g/dL (3.5-5.0); ALBUMIN/GLOBULIN RATIO 0.4 (0.8-2.0); ANION GAP 13.1 mmol/L (8-16); CALCIUM 7.2 mg/dL (8.4-10.2); CREATININE, SERUM 2.02 mg/dL (0.57-1.11); POTASSIUM 3.1 mmol/L (3.5-5.1)
[2021-10-09 08:26] LABS: ABG PH 7.27 (7.35-7.45)
[2021-10-09 08:27] LABS: ABG HCO3 30 mmol/L (22-26); ABG PCO2 65 mmHg (35-45); ABG PO2 59 mmHg (80-105); ABG TCO2 32
[2021-10-09 09:14] LABS: ANISOCYTOSIS SLIGHT; BAND NEUTROPHILS % (MANUAL) 2 %; EOSINOPHILS % (MANUAL) 6 % (0-7); LYMPHOCYTES % (MANUAL) 7 % (19-48); MYELOCYTES % (MANUAL) 2 % (0-0); NEUTROPHILS % (MANUAL) 83 % (40-74); NUCLEATED RED BLOOD CELLS 2; PLATELET ESTIMATE ADEQUATE; PLATELET MORPHOLOGY COMMENT NORMAL; RBC MORPHOLOGY COMMENT NORMAL; TEAR DROP CELLS FEW
[2021-10-09 09:15] LABS: POLYCHROMASIA FEW
[2021-10-09] MEDS: IRON SUCROSE 100 MG in SODIUM CHLORIDE 0.9% 100 ML 100 ML IV SCH (09:21)
[2021-10-09] MEDS: FAMOTIDINE 20 MG TAB PO SCH (09:47)
[2021-10-09] MEDS: DOCUSATE SODIUM 100 MG CAP PO SCH ×2 (09:47→17:18)
[2021-10-09] MEDS: ASCORBIC ACID 500 MG TAB PO SCH ×2 (09:47→17:18)
[2021-10-09] MEDS: FOLIC ACID 1 MG TAB PO SCH (09:47)
[2021-10-09] MEDS: POLYETHYLENE GLYCOL 3350 17 GM PACK PO SCH (09:47)
[2021-10-09] MEDS: ALBUMIN 25% 25GM 100ML 0.25 GM/ML BTL IV SCH ×2 (10:11→17:18)
[2021-10-09] MEDS: VASOPRESSIN 60 UNIT in DEXTROSE 5% 50ML 57 ML IV PRN ×2 (10:53→22:24)
[2021-10-09 11:57] LABS: CREATININE,URINE RANDOM 99.91 mg/dL (47-110)
[2021-10-09 12:11] LABS: TOTAL PROTEIN, URINE 314.8 mg/dL (1-14)
[2021-10-09] MEDS: NOREPINEPHRINE 8 MG/D5W 250 ML 250 ML IV SCH ×2 (13:25→20:11)
[2021-10-09] MEDS: POTASSIUM CHLORIDE 20 MEQ TAB CR PO PRN (14:29)
[2021-10-09] MEDS: ENOXAPARIN 30 MG/0.3 ML SYR SC SCH (17:18)
[2021-10-10] VITALS (74 sets, daily range): BP systolic 81–124; BP diastolic 36–69
[2021-10-10] MEDS ORDERED: SODIUM CHLORIDE 0.9% 250ML 250 ML ONE ×2 (00:58→20:15)
[2021-10-10] MEDS: Vancomycin IV 1 GM in SODIUM CHLORIDE 0.9% 250ML 250 ML IV SCH (01:31)
[2021-10-10] MEDS: FUROSEMIDE INJ 100 MG in SODIUM CHLORIDE 0.9% 90 ML IV SCH ×2 (01:31→05:23)
[2021-10-10] MEDS ORDERED: METOCLOPRAMIDE HCL 10 MG/2ML VIAL IV STA (02:43)
[2021-10-10] MEDS: METOCLOPRAMIDE HCL 10 MG/2ML VIAL IV SCH ×4 (04:03→23:28)
[2021-10-10] MEDS: PROPOFOL IV EMULSION 10MG/ML 100 ML IV SCH ×3 (04:30→17:53)
[2021-10-10 05:23] LABS: BASOPHILS # (AUTO) 0.1 (0.0-0.1); BASOPHILS % 0.5 % (0.0-1.0); HEMATOCRIT 28.5 % (34.2-44.1); HEMOGLOBIN 8.8 g/dL (12.0-16.0); LYMPHOCYTES # (AUTO) 2.8 (1.0-3.2); LYMPHOCYTES % 11.3 % (18.0-39.1); MEAN CORPUSCULAR HEMOGLOBIN 31.8 pg (28-32); MEAN CORPUSCULAR HGB CONC 30.9 g/dL (31-35); MEAN CORPUSCULAR VOLUME 102.9 fL (81-99); MONOCYTES # (AUTO) 0.8 (0.2-0.8); MONOCYTES % 3.2 % (4.4-11.3); NEUTROPHILS # (AUTO) 17.9 (2.1-6.9); PLATELET COUNT 144 x10e3/uL (140-360); RED BLOOD COUNT 2.77 x10e6/uL (3.6-5.1); RED CELL DISTRIBUTION WIDTH 23.5 % (11.7-14.4)
[2021-10-10] MEDS: MIDODRINE HCL 5 MG TABLET PO SCH ×3 (05:24→21:29)
[2021-10-10 05:56] LABS: ALBUMIN 2.3 g/dL (3.5-5.0); ALBUMIN/GLOBULIN RATIO 0.5 (0.8-2.0); ANION GAP 16.4 mmol/L (8-16); CREATININE, SERUM 2.76 mg/dL (0.57-1.11); POTASSIUM 3.4 mmol/L (3.5-5.1)
[2021-10-10] MEDS: NOREPINEPHRINE 8 MG/D5W 250 ML 250 ML IV SCH ×4 (05:58→20:30)
[2021-10-10 08:17] LABS: BAND NEUTROPHILS % (MANUAL) 1 %; EOSINOPHILS % (MANUAL) 1 % (0-7); LYMPHOCYTES % (MANUAL) 4 % (19-48); METAMYELOCYTES % (MANUAL) 2 % (0-0); MONOCYTES % (MANUAL) 5 % (3.4-9.0); MYELOCYTES % (MANUAL) 1 % (0-0); NEUTROPHILS % (MANUAL) 83 % (40-74); NUCLEATED RED BLOOD CELLS 3; PLATELET ESTIMATE SLIGHTLY DECREASED; PLATELET MORPHOLOGY COMMENT NORMAL; PROMYELOCYTES % (MANUAL) 3 % (0-0); RBC MORPHOLOGY COMMENT NORMAL; TEAR DROP CELLS FEW
[2021-10-10 08:18] LABS: POLYCHROMASIA FEW
[2021-10-10] MEDS: POLYETHYLENE GLYCOL 3350 17 GM PACK PO SCH (09:00)
[2021-10-10] MEDS: DOCUSATE SODIUM 100 MG CAP PO SCH ×2 (09:00→16:58)
[2021-10-10] MEDS: ALBUMIN 25% 25GM 100ML 0.25 GM/ML BTL IV SCH ×2 (09:12→16:58)
[2021-10-10] MEDS: FOLIC ACID 1 MG TAB PO SCH (09:13)
[2021-10-10] MEDS: ASCORBIC ACID 500 MG TAB PO SCH ×2 (09:13→16:58)
[2021-10-10] MEDS: FAMOTIDINE 20 MG TAB PO SCH (09:13)
[2021-10-10 09:17] LABS: ABG HCO3 29 mmol/L (22-26); ABG PCO2 70 mmHg (35-45); ABG PH 7.21 (7.35-7.45); ABG PO2 53 mmHg (80-105); ABG TCO2 31
[2021-10-10] MEDS: IRON SUCROSE 100 MG in SODIUM CHLORIDE 0.9% 100 ML 100 ML IV SCH (09:37)
[2021-10-10 10:08] LABS: ABG HCO3 27 mmol/L (22-26); ABG PCO2 70 mmHg (35-45); ABG PO2 60 mmHg (80-105)
[2021-10-10 10:09] LABS: ABG TCO2 29
[2021-10-10] MEDS ORDERED: SODIUM CHLORIDE 0.9% 1000ML 2,000 ML ONE (10:28)
[2021-10-10] MEDS ORDERED: SODIUM CHLORIDE 0.9% 1000ML 2,000 ML IV PRN (11:30)
[2021-10-10] MEDS ORDERED: ALBUMIN 25% 12.5GM 0.25 GM/ML BTL IV PRN (11:30)
[2021-10-10] MEDS ORDERED: HEPARIN SOD (PORCINE) 1000 UNIT/ML SDV IV PRN (11:30)
[2021-10-10] MEDS: VASOPRESSIN 60 UNIT in DEXTROSE 5% 50ML 57 ML IV PRN (11:34)
[2021-10-10] MEDS ORDERED: ALBUMIN 25% 12.5GM 50ML 100 ML IV ONE (11:38)
[2021-10-10] MEDS: FENTANYL 2000MCG/NS 250 250 ML IV SCH ×2 (11:43→17:54)
[2021-10-10] MEDS ORDERED: VANCOMYCIN 250MG/5ML ORAL SOLN PO SCH (12:00)
[2021-10-10 13:07] LABS: BASOPHILS # (AUTO) 0.1 (0.0-0.1); BASOPHILS % 0.3 % (0.0-1.0); EOSINOPHILS # (AUTO) 1.7 (0.0-0.4); HEMATOCRIT 27.5 % (34.2-44.1); HEMOGLOBIN 8.2 g/dL (12.0-16.0); LYMPHOCYTES # (AUTO) 2.4 (1.0-3.2); LYMPHOCYTES % 9.8 % (18.0-39.1); MEAN CORPUSCULAR HEMOGLOBIN 30.8 pg (28-32); MEAN CORPUSCULAR HGB CONC 29.8 g/dL (31-35); MEAN CORPUSCULAR VOLUME 103.4 fL (81-99); MONOCYTES # (AUTO) 0.6 (0.2-0.8); MONOCYTES % 2.4 % (4.4-11.3); NEUTROPHILS # (AUTO) 17.9 (2.1-6.9); NEUTROPHILS % 72.9 % (38.7-80.0); PLATELET COUNT 100 x10e3/uL (140-360); RED BLOOD COUNT 2.66 x10e6/uL (3.6-5.1); RED CELL DISTRIBUTION WIDTH 23.1 % (11.7-14.4)
[2021-10-10 13:29] LABS: INR 2.64; PROTHROMBIN TIME 30.1 seconds (11.9-14.5)
[2021-10-10 13:30] LABS: PARTIAL THROMBOPLASTIN TIME 68.1 seconds (23.8-35.5)
[2021-10-10] MEDS: LINEZOLID 600 MG/D5W 300ML 300 ML IV SCH (13:59)
[2021-10-10 16:44] LABS: ABG PCO2 57 mmHg (35-45); ABG PH 7.24 (7.35-7.45); ABG PO2 56 mmHg (80-105)
[2021-10-10 16:45] LABS: ABG HCO3 25 mmol/L (22-26); ABG TCO2 26
[2021-10-10] MEDS: ENOXAPARIN 30 MG/0.3 ML SYR SC SCH (16:58)
[2021-10-10] MEDS: POTASSIUM CHLORIDE 20 MEQ TAB CR PO PRN (17:54)
[2021-10-11] VITALS (42 sets, daily range): BP systolic 49–102; BP diastolic 23–95
[2021-10-11] MEDS: LINEZOLID 600 MG/D5W 300ML 300 ML IV SCH ×2 (01:47→14:39)
[2021-10-11] MEDS: VASOPRESSIN 60 UNIT in DEXTROSE 5% 50ML 57 ML IV PRN ×2 (04:30→11:24)
[2021-10-11] MEDS: MIDODRINE HCL 5 MG TABLET PO SCH ×3 (05:41→21:24)
[2021-10-11] MEDS: METOCLOPRAMIDE HCL 10 MG/2ML VIAL IV SCH ×4 (05:41→23:58)
[2021-10-11 06:16] LABS: BASOPHILS # (AUTO) 0.1 (0.0-0.1); BASOPHILS % 0.3 % (0.0-1.0); EOSINOPHILS # (AUTO) 1.5 (0.0-0.4); EOSINOPHILS % 6.5 % (0.0-6.0); HEMATOCRIT 24.3 % (34.2-44.1); HEMOGLOBIN 7.3 g/dL (12.0-16.0); LYMPHOCYTES # (AUTO) 2.7 (1.0-3.2); LYMPHOCYTES % 11.6 % (18.0-39.1); MEAN CORPUSCULAR HEMOGLOBIN 31.1 pg (28-32); MEAN CORPUSCULAR VOLUME 103.4 fL (81-99); MONOCYTES # (AUTO) 0.7 (0.2-0.8); MONOCYTES % 2.9 % (4.4-11.3); NEUTROPHILS # (AUTO) 15.9 (2.1-6.9); NEUTROPHILS % 68.5 % (38.7-80.0); PLATELET COUNT 107 x10e3/uL (140-360); RED BLOOD COUNT 2.35 x10e6/uL (3.6-5.1); RED CELL DISTRIBUTION WIDTH 23.6 % (11.7-14.4)
[2021-10-11] MEDS: NOREPINEPHRINE 8 MG/D5W 250 ML 250 ML IV SCH ×3 (06:23→20:11)
[2021-10-11 06:39] LABS: INR 2.62; PROTHROMBIN TIME 29.9 seconds (11.9-14.5)
[2021-10-11 06:40] LABS: ALBUMIN 2.7 g/dL (3.5-5.0); ALBUMIN/GLOBULIN RATIO 0.7 (0.8-2.0); ANION GAP 20.6 mmol/L (8-16); CALCIUM 8.3 mg/dL (8.4-10.2); CREATININE, SERUM 3.57 mg/dL (0.57-1.11); PARTIAL THROMBOPLASTIN TIME 60.7 seconds (23.8-35.5); POTASSIUM 3.6 mmol/L (3.5-5.1)
[2021-10-11] MEDS: DEXTROSE 50% SYRINGE 50 ML IV PRN ×3 (06:50→14:42)
[2021-10-11] MEDS ORDERED: DEXTROSE 50% SYRINGE 50 ML IV ONE (06:59)
[2021-10-11] MEDS: PROPOFOL IV EMULSION 10MG/ML 100 ML IV SCH (07:26)
[2021-10-11 07:58] LABS: ABG HCO3 21 mmol/L (22-26); ABG PCO2 57 mmHg (35-45); ABG PH 7.18 (7.35-7.45); ABG PO2 52 mmHg (80-105); ABG TCO2 23
[2021-10-11] MEDS ORDERED: SODIUM BICARBONATE 8.4% INJ 50 ML SYR IV ONE (08:30)
[2021-10-11 08:52] LABS: BAND NEUTROPHILS % (MANUAL) 2 %; EOSINOPHILS % (MANUAL) 6 % (0-7); LYMPHOCYTES % (MANUAL) 7 % (19-48); MONOCYTES % (MANUAL) 4 % (3.4-9.0); MYELOCYTES % (MANUAL) 2 % (0-0); NEUTROPHILS % (MANUAL) 78 % (40-74); NUCLEATED RED BLOOD CELLS 8; PROMYELOCYTES % (MANUAL) 1 % (0-0)
[2021-10-11 08:54] LABS: PLATELET ESTIMATE SLIGHTLY DECREASED
[2021-10-11 08:55] LABS: ANISOCYTOSIS MARKED; HYPOCHROMASIA MODERATE; PLATELET MORPHOLOGY COMMENT NORMAL; RBC MORPHOLOGY COMMENT ABNORMAL
[2021-10-11] MEDS: DOCUSATE SODIUM 100 MG CAP PO SCH ×2 (09:00→17:00)
[2021-10-11] MEDS: POLYETHYLENE GLYCOL 3350 17 GM PACK PO SCH (09:00)
[2021-10-11] MEDS: FAMOTIDINE 20 MG TAB PO SCH (09:59)
[2021-10-11] MEDS: FOLIC ACID 1 MG TAB PO SCH (09:59)
[2021-10-11] MEDS: ALBUMIN 25% 25GM 100ML 0.25 GM/ML BTL IV SCH ×2 (09:59→17:13)
[2021-10-11] MEDS: IRON SUCROSE 100 MG in SODIUM CHLORIDE 0.9% 100 ML 100 ML IV SCH (09:59)
[2021-10-11] MEDS: ASCORBIC ACID 500 MG TAB PO SCH ×2 (09:59→17:13)
[2021-10-11] MEDS ORDERED: SODIUM CHLORIDE 0.9% 250ML 500 ML IV PRN (10:30)
[2021-10-11] MEDS ORDERED: MANNITOL 25% 12.5GM/50 ML VIAL IV PRN (10:30)
[2021-10-11] MEDS ORDERED: SODIUM BICARBONATE 8.4% INJ 50 ML SYR IV STA (11:37)
[2021-10-11] MEDS ORDERED: PHENYLEPHRINE HCL IN 0.9% NACL 250 ML IV ONE (11:52)
[2021-10-11] MEDS: PHENYLEPHRINE 10MG/ML VIAL 40 MG in DEXTROSE 5% 250ML 250 ML IV PRN ×3 (12:40→22:03)
[2021-10-11] MEDS: FENTANYL 2000MCG/NS 250 250 ML IV SCH (17:05)
[2021-10-11] MEDS: ENOXAPARIN 30 MG/0.3 ML SYR SC SCH (17:13)
[2021-10-12] VITALS (42 sets, daily range): BP systolic 30–105; BP diastolic 10–101
[2021-10-12] MEDS: NOREPINEPHRINE 8 MG/D5W 250 ML 250 ML IV SCH ×2 (00:39→10:08)
[2021-10-12] MEDS: VASOPRESSIN 60 UNIT in DEXTROSE 5% 50ML 57 ML IV PRN (00:40)
[2021-10-12] MEDS: DEXTROSE 50% SYRINGE 50 ML IV PRN ×2 (01:29→08:43)
[2021-10-12] MEDS: PHENYLEPHRINE 10MG/ML VIAL 40 MG in DEXTROSE 5% 250ML 250 ML IV PRN ×4 (01:30→12:24)
[2021-10-12] MEDS: LINEZOLID 600 MG/D5W 300ML 300 ML IV SCH (01:41)
[2021-10-12] MEDS: PROPOFOL IV EMULSION 10MG/ML 100 ML IV SCH (04:30)
[2021-10-12 05:04] LABS: BASOPHILS # (AUTO) 0.1 (0.0-0.1); BASOPHILS % 0.3 % (0.0-1.0); EOSINOPHILS # (AUTO) 0.9 (0.0-0.4); EOSINOPHILS % 2.7 % (0.0-6.0); LYMPHOCYTES # (AUTO) 4.4 (1.0-3.2); LYMPHOCYTES % 12.5 % (18.0-39.1); MEAN CORPUSCULAR HEMOGLOBIN 31.3 pg (28-32); MEAN CORPUSCULAR HGB CONC 28.4 g/dL (31-35); MEAN CORPUSCULAR VOLUME 110.4 fL (81-99); MONOCYTES # (AUTO) 1.1 (0.2-0.8); MONOCYTES % 3.1 % (4.4-11.3); NEUTROPHILS # (AUTO) 22.2 (2.1-6.9); NEUTROPHILS % 63.1 % (38.7-80.0); PLATELET COUNT 80 x10e3/uL (140-360); RED BLOOD COUNT 2.01 x10e6/uL (3.6-5.1); RED CELL DISTRIBUTION WIDTH 23.5 % (11.7-14.4)
[2021-10-12 05:05] LABS: HEMATOCRIT 22.2 % (34.2-44.1); HEMOGLOBIN 6.3 g/dL (12.0-16.0)
[2021-10-12 05:27] LABS: ALBUMIN 2.6 g/dL (3.5-5.0); ALBUMIN/GLOBULIN RATIO 0.7 (0.8-2.0); CALCIUM 7.8 mg/dL (8.4-10.2); CREATININE, SERUM 4.22 mg/dL (0.57-1.11)
[2021-10-12] MEDS: METOCLOPRAMIDE HCL 10 MG/2ML VIAL IV SCH ×2 (05:37→12:00)
[2021-10-12] MEDS: MIDODRINE HCL 5 MG TABLET PO SCH (05:37)
[2021-10-12 06:00] LABS: ANION GAP 29.3 mmol/L (8-16); POTASSIUM 4.3 mmol/L (3.5-5.1)
[2021-10-12] MEDS ORDERED: SODIUM CHLORIDE 0.9% 250ML 250 ML IV ONE (06:15)
[2021-10-12 06:41] LABS: BAND NEUTROPHILS % (MANUAL) 7 %; EOSINOPHILS % (MANUAL) 3 % (0-7); LYMPHOCYTES % (MANUAL) 8 % (19-48); METAMYELOCYTES % (MANUAL) 4 % (0-0); MONOCYTES % (MANUAL) 2 % (3.4-9.0); MYELOCYTES % (MANUAL) 3 % (0-0); NEUTROPHILS % (MANUAL) 66 % (40-74); NUCLEATED RED BLOOD CELLS 17; PROMYELOCYTES % (MANUAL) 7 % (0-0)
[2021-10-12 06:43] LABS: ANISOCYTOSIS MODERATE; PLATELET ESTIMATE MODERATELY DECREASED; PLATELET MORPHOLOGY COMMENT NORMAL; RBC MORPHOLOGY COMMENT ABNORMAL
[2021-10-12] MEDS ORDERED: SODIUM BICARBONATE 8.4% INJ 50 ML SYR IV ONE ×2 (06:45→09:45)
[2021-10-12 06:50] LABS: POLYCHROMASIA FEW
[2021-10-12 06:53] LABS: HYPOCHROMASIA MODERATE
[2021-10-12 07:05] LABS: ABG HCO3 11 mmol/L (22-26); ABG PCO2 45 mmHg (35-45); ABG PH 6.98 (7.35-7.45); ABG PO2 63 mmHg (80-105); ABG TCO2 12
[2021-10-12] MEDS: ALBUMIN 25% 25GM 100ML 0.25 GM/ML BTL IV SCH (08:42)
[2021-10-12] MEDS: IRON SUCROSE 100 MG in SODIUM CHLORIDE 0.9% 100 ML 100 ML IV SCH (08:42)
[2021-10-12] MEDS: FOLIC ACID 1 MG TAB PO SCH (08:42)
[2021-10-12] MEDS: ASCORBIC ACID 500 MG TAB PO SCH (08:43)
[2021-10-12] MEDS: FAMOTIDINE 20 MG TAB PO SCH (08:43)
[2021-10-12] MEDS: POLYETHYLENE GLYCOL 3350 17 GM PACK PO SCH (08:43)
[2021-10-12] MEDS: DOCUSATE SODIUM 100 MG CAP PO SCH (08:43)
[2021-10-12] MEDS ORDERED: FENTANYL 2000MCG/NS 250 250 ML IV SCH (09:15)
[2021-10-12] MEDS ORDERED: PROPOFOL IV EMULSION 10MG/ML 100 ML IV SCH (09:15)
[2021-10-12] MEDS ORDERED: SODIUM BICARBONATE 8.4% SYRING 150 ML in DEXTROSE 5% 1,000 ML IV SCH (10:00)
[2021-10-12] MEDS ORDERED: NOREPINEPHRINE INJ 4MG/4ML 16 MG in DEXTROSE 5% 250ML 250 ML IV SCH (13:30)
[2021-10-12] MEDS ORDERED: SODIUM BICARBONATE 8.4% INJ 50 ML SYR ONE (19:27)
[2021-10-12] MEDS ORDERED: EPINEPHRINE HCL SYRINGE ONE (19:27)
== END 2021-10-12 19:04 | disposition expired | DRG 870 ==
LOC: ER 09:35 → ERHOLD 10:07 → ICU 11:45 → IMCU 10-12 16:28
PROVIDERS: ADMIT Internal Medicine; ATTEND Internal Medicine
PROC: 3E04329 Introduction of Other Anti-infective into Central Vein, Percutaneous Approach (ICD-10-PCS; principal; 2021-10-02)
PROC: 5A09357 Assistance with Respiratory Ventilation, Less than 24 Consecutive Hours, Continuous Positive Airway Pressure (ICD-10-PCS; principal; 2021-10-02)
PROC: 02HV33Z Insertion of Infusion Device into Superior Vena Cava, Percutaneous Approach (ICD-10-PCS; principal; 2021-10-02)
PROC: 0BH18EZ Insertion of Endotracheal Airway into Trachea, Via Natural or Artificial Opening Endoscopic (ICD-10-PCS; 2021-10-07)
PROC: 5A1955Z Respiratory Ventilation, Greater than 96 Consecutive Hours (ICD-10-PCS; 2021-10-07)
PROC: 30243K1 Transfusion of Nonautologous Frozen Plasma into Central Vein, Percutaneous Approach (ICD-10-PCS; 2021-10-10)
PROC: 5A1D70Z Performance of Urinary Filtration, Intermittent, Less than 6 Hours Per Day (ICD-10-PCS; 2021-10-10)
PROC: 5A12012 Performance of Cardiac Output, Single, Manual (ICD-10-PCS; 2021-10-12)
PROC: 30243N1 Transfusion of Nonautologous Red Blood Cells into Central Vein, Percutaneous Approach (ICD-10-PCS; 2021-10-12)
DX: A41.02 Sepsis due to Methicillin resistant Staphylococcus aureus (principal); J96.21 Acute and chronic respiratory failure with hypoxia; K72.00 Acute and subacute hepatic failure without coma; J15.212 Pneumonia due to Methicillin resistant Staphylococcus aureus; R65.21 Severe sepsis with septic shock; G93.41 Metabolic encephalopathy; N39.0 Urinary tract infection, site not specified; Z68.44 Body mass index [BMI] 60.0-69.9, adult; E87.0 Hyperosmolality and hypernatremia; N17.9 Acute kidney failure, unspecified; D68.9 Coagulation defect, unspecified; E66.2 Morbid (severe) obesity with alveolar hypoventilation; I50.32 Chronic diastolic (congestive) heart failure; I46.9 Cardiac arrest, cause unspecified; Y95 Nosocomial condition; D64.9 Anemia, unspecified; I35.0 Nonrheumatic aortic (valve) stenosis; G47.33 Obstructive sleep apnea (adult) (pediatric); I11.0 Hypertensive heart disease with heart failure; I34.0 Nonrheumatic mitral (valve) insufficiency; I87.8 Other specified disorders of veins; R16.0 Hepatomegaly, not elsewhere classified; Z20.822 Contact with and (suspected) exposure to COVID-19; K76.0 Fatty (change of) liver, not elsewhere classified; D50.0 Iron deficiency anemia secondary to blood loss (chronic); Z99.81 Dependence on supplemental oxygen; F32.A Depression, unspecified; F41.9 Anxiety disorder, unspecified
CPT/HCPCS: 31500; 36415; 36569; 36600; 51700; 71045; 74018; 76700; 80053; 80061; 80202; 81001; 82248; 82550; 82553; 82570; 82607; 82746; 82805; 82948; 83036; 83540; 83605; 83735; 83880; 84100; 84155; 84156; 84436; 84443; 84466; 84479; 84484; 85025; 85045; 85610; 85730; 86850; 86900; 86920; 87040; 87070; 87086; 87186; 87205; 90962; 92950; 93005; 93306; 94003; 94660; 94799; 96360; 99251; 99284; J0171; J0330; J0456; J1650; J1756; J1940; J2020; J2250; J2370; J2543; J2765; J2930; J3370; J3430; J3480; J7030; J7050; J7070; J7799; P9016; P9017; P9047; U0002